=== PATIENT | female | born 1940 | race Two or more races ===

== ENCOUNTER 2018-10-02 10:47 | Outpatient (CLI) | payer OTHER ==
[~2018-10-02 10:47] MED LIST: ALLEGRA ALLERG180 MG PO; BUCALSEP SPRAY30 ML MM; DOLOGESIC CAPLE1 TAB PO; LEVSIN0.125 MG PO; PROVENTIL3 ML/2.5 M IH; TRAMADOL HCL-AP1 TAB PO; ZANTAC300 MG PO; ZESTORETIC 20/11 TAB PO; ZITHROMAX500 MG PO; ZYNCOF 20-400120 ML PO
== END 2018-10-02 10:48 | disposition home or self-care (01) ==
LOC: NUCLEAR 10:47
DX: I87.2 Venous insufficiency (chronic) (peripheral) (principal)

== ENCOUNTER 2018-10-05 08:04 | Outpatient (CLI) | payer OTHER | END 2018-10-05 08:07 | disposition home or self-care (01) | LOC: NUCLEAR 08:04 | DX: I73.9 Peripheral vascular disease, unspecified (principal); I87.2 Venous insufficiency (chronic) (peripheral) ==

== ENCOUNTER 2018-10-07 11:33 | Outpatient (CLI) | payer OTHER | END 2018-10-07 11:54 | disposition home or self-care (01) | LOC: RAD 11:33 | DX: M19.90 Unspecified osteoarthritis, unspecified site (principal) ==

== ENCOUNTER 2020-05-12 00:53 | Emergency (ER) | payer OTHER ==
[~2020-05-12] VITALS: Ht 157.5 cm; Wt 61.2 kg
[2020-05-12] MEDS ORDERED: NORVASC (01:23)
[2020-05-12] MEDS ORDERED: VISTARIL50 MG PO (05:26)
== END 2020-05-12 05:42 | disposition home or self-care (01) ==
LOC: ER 00:53 → CPU-OBS 00:56 → ER 00:56
DX: R07.89 Other chest pain (principal); F41.8 Other specified anxiety disorders

== ENCOUNTER 2020-10-02 15:17 | Outpatient (CLI) | payer OTHER ==
[~2020-10-02 15:17] MED LIST changes: +NORVASC; +VISTARIL50 MG PO
== END 2020-10-06 15:15 | disposition home or self-care (01) ==
LOC: RAD 15:17
PROVIDERS: ATTEND Internal Medicine Cardiovascular Disease
DX: M54.5 Low back pain (principal); M12.851 Other specific arthropathies, not elsewhere classified, right hip; M25.552 Pain in left hip; M25.551 Pain in right hip

== ENCOUNTER 2021-04-03 03:32 | Emergency (ER) | payer OTHER ==
[~2021-04-03] VITALS: Ht 157.5 cm; Wt 59.0 kg
== END 2021-04-03 10:50 | disposition home or self-care (01) ==
LOC: ER 03:32
DX: R42 Dizziness and giddiness (principal); I10 Essential (primary) hypertension

== ENCOUNTER 2021-04-27 21:06 | Emergency (ER) | payer OTHER ==
[~2021-04-27] VITALS: Ht 157.5 cm; Wt 52.2 kg
[2021-04-27] MEDS ORDERED: COZAAR50 MG PO (21:25)
== END 2021-04-27 23:21 | disposition home or self-care (01) ==
LOC: ER 21:06
DX: I10 Essential (primary) hypertension (principal); Z88.8 Allergy status to other drugs, medicaments and biological substances

== ENCOUNTER 2021-04-29 21:00 | Emergency (ER) | payer OTHER ==
[~2021-04-29] VITALS: Ht 157.5 cm; Wt 59.0 kg
[~2021-04-29 21:00] MED LIST changes: +COZAAR50 MG PO
[2021-04-29] MEDS ORDERED: LOSARTAN POTASS50 MG PO (21:16)
[2021-04-29] MEDS ORDERED: HYDROCHLOROTH12.5 MG PO (21:17)
== END 2021-04-29 22:20 | disposition home or self-care (01) ==
LOC: ER 21:00
DX: I10 Essential (primary) hypertension (principal)

== ENCOUNTER 2021-06-15 03:37 | Emergency (ER) | payer OTHER ==
[~2021-06-15] VITALS: Ht 157.5 cm; Wt 57.2 kg
[~2021-06-15 03:37] MED LIST changes: +HYDROCHLOROTH12.5 MG PO; +LOSARTAN POTASS50 MG PO
== END 2021-06-15 10:31 | disposition home or self-care (01) ==
LOC: ER 03:37
DX: I10 Essential (primary) hypertension (principal); Z88.8 Allergy status to other drugs, medicaments and biological substances

== ENCOUNTER 2022-06-19 23:00 | Emergency (ER) | payer OTHER ==
[~2022-06-19] VITALS: Ht 157.5 cm; Wt 54.4 kg
[2022-06-19] MEDS ORDERED: AVAPRO150 MG (23:20)
[2022-06-19] MEDS ORDERED: DILTIAZEM ER180 M3 (23:21)
[2022-06-19] MEDS ORDERED: LEVO-T50 MCG (23:22)
[2022-06-19] MEDS ORDERED: CRESTOR5 MG (23:23)
[2022-06-19] MEDS ORDERED: AMBIEN5 MG (23:24)
== END 2022-06-20 03:39 ==
LOC: ER 23:00
DX: I10 Essential (primary) hypertension (principal); Z88.6 Allergy status to analgesic agent

== ENCOUNTER 2022-07-30 00:05 | Emergency (ER) | payer OTHER ==
[~2022-07-30] VITALS: Ht 157.5 cm; Wt 59.9 kg
[~2022-07-30 00:05] MED LIST changes: +AMBIEN5 MG; +AVAPRO150 MG; +CRESTOR5 MG; +DILTIAZEM ER180 M3; +LEVO-T50 MCG
== END 2022-07-30 01:53 | disposition home or self-care (01) ==
LOC: ER 00:05
DX: R51.9 Headache, unspecified (principal); I10 Essential (primary) hypertension; Z88.8 Allergy status to other drugs, medicaments and biological substances

== ENCOUNTER 2024-01-07 17:08 | Emergency (ER) | payer OTHER ==
[~2024-01-07] VITALS: Ht 152.4 cm; Wt 54.4 kg
[~2024-01-07 17:08] MED LIST changes: +ATENOLOL25 MG PO; +HYDRALAZINE HCL25 MG PO
[2024-01-07] MEDS ORDERED: NEURONTIN300 MG PO (17:33)
[2024-01-07] MEDS ORDERED: HYDROCHLOROTHIA50 MG (17:34)
[2024-01-07] MEDS ORDERED: METRONIDAZOLE500 MG (17:34)
[2024-01-07] MEDS ORDERED: INDAPAMIDE1.25 MG PO (17:35)
[2024-01-07] MEDS ORDERED: SYNTHROID50 MCG PO (17:35)
[2024-01-07] MEDS ORDERED: HYDROXYZIN10 MG/5 ML PO (17:36)
[2024-01-07] MEDS ORDERED: KETOROLAC TROMETHAMINE 60 MG VIAL IM STA (17:55)
== END 2024-01-07 18:17 | disposition home or self-care (01) ==
LOC: ER 17:09
DX: M13.89 Other specified arthritis, multiple sites (principal); I10 Essential (primary) hypertension; Z88.8 Allergy status to other drugs, medicaments and biological substances
CPT/HCPCS: 96372; 99282; J1885

== ENCOUNTER 2024-01-16 16:35 | Inpatient (IN) | payer OTHER ==
[~2024-01-16] VITALS: Ht 152.4 cm; Wt 59.0 kg
[~2024-01-16 16:35] MED LIST changes: +HYDROCHLOROTHIA50 MG; +HYDROXYZIN10 MG/5 ML PO; +INDAPAMIDE1.25 MG PO; +METRONIDAZOLE500 MG; +NEURONTIN300 MG PO; +SYNTHROID50 MCG PO
[2024-01-16] MEDS ORDERED: FAMOTIDINE/PF 20 MG in 0.9 % SODIUM CHLORIDE 8 ML IV PUSH STA (17:08)
[2024-01-16] MEDS ORDERED: ONDANSETRON HCL 2 MG/ML VIAL IV ONE (17:15)
[2024-01-16] MEDS ORDERED: hydrOXYzine PAMOATE 25 MG CAPSULE PO ONE (17:15)
[2024-01-16] MEDS ORDERED: SODIUM CHLORIDE 0.45 % 1,000 ML IV SCH (17:15)
[2024-01-16 17:32] LABS: HEMATOCRIT 35.2 % (36.0-45.00); HEMOGLOBIN 12.2 g/dL (12.0-15.00); MEAN CELL VOLUME 84.5 fL (80.00-100.00); MEAN CORPUSCULAR HEMOGLOBIN 29.4 pg (27.00-32.0); MEAN CORPUSCULAR HGB CONC 34.8 g/dl (32.0-36.0); PLATELET COUNT 312 K/uL (150-450); RED BLOOD COUNT 4.16 M/uL (4.00-6.00); RED CELL DISTRIBUTION WIDTH 13.8 % (11.5-14.5)
[2024-01-16 18:22] LABS: URINE APPEARANCE Clear; URINE BILIRRUBIN Negative (NEGATIVE); URINE BLOOD Small; URINE COLOR Yellow; URINE GLUCOSE Negative (NEGATIVE); URINE KETONE Trace (NEGATIVE); URINE LEUKOCYTE Negative; URINE NITRATE Negative; URINE PROTEIN Trace (NEGATIVE); URINE UROBILINOGEN 0.2 E.U./dl
[2024-01-16 18:26] LABS: URINE BACTERIA 93.1 uL (0.0-1933); URINE EPITHELIAL CELLS 14.9 uL (0.0-38.8); URINE WBC 5.8 uL (0.0-23.2)
[2024-01-16] MEDS ORDERED: BUTALB/ACETAMINOPHEN/CAFFEINE 1 TAB TABLET PO ONE (18:45)
[2024-01-16] MEDS ORDERED: ENALAPRILAT DIHYDRATE 2.5 MG/2 ML VIAL IV ONE (18:45)
[2024-01-16 19:11] LABS: ALBUMIN 3.7 gm/dL (3.4-5.0); BILIRUBIN TOTAL 0.28 mg/dL (0.3-1.2); CALCIUM 9.2 mg/dL (8.5-10.1); CREATININE SERUM 0.82 mg/dL (0.55-1.02); GFR 66.74; GLOBULINA 4.1 G/DL (2.4-3.5); TOTAL PROTEIN 7.8 gm/dL (6.4-8.2)
[2024-01-16 19:16] LABS: POTASSIUM 2.76 mEq/L (3.5-5.1)
[2024-01-16] MEDS ORDERED: POTASSIUM CHLORIDE/D5-0.9%NACL 1,000 ML IV ONE (20:15)
[2024-01-16] MEDS ORDERED: 0.9 % SODIUM CHLORIDE 1,000 ML IV SCH ×2 (21:45→22:15)
[2024-01-16] MEDS ORDERED: ACETAMINOPHEN 325 MG TABLET PO PRN (22:15)
[2024-01-16] MEDS ORDERED: VITAMIN B COMPLEX/LYSINE 1 ML ML PO SCH (22:18)
[2024-01-16] MEDS ORDERED: ENALAPRILAT DIHYDRATE 2.5 MG/2 ML VIAL IV PRN (22:30)
[2024-01-16] MEDS ORDERED: POTASSIUM CHLORIDE IN WATER 100 ML IV ONE (22:30)
[2024-01-17 05:15] VITALS: BP 170/84; O2SAT 97
[2024-01-17] MEDS ORDERED: LEVOTHYROXINE SODIUM 50 MCG TABLET PO SCH (06:00)
[2024-01-17 07:55] LABS: HEMATOCRIT 33.4 % (36.0-45.00); HEMOGLOBIN 11.8 g/dL (12.0-15.00); MEAN CELL VOLUME 84.8 fL (80.00-100.00); MEAN CORPUSCULAR HEMOGLOBIN 29.9 pg (27.00-32.0); MEAN CORPUSCULAR HGB CONC 35.3 g/dl (32.0-36.0); PLATELET COUNT 321 K/uL (150-450); RED BLOOD COUNT 3.93 M/uL (4.00-6.00); RED CELL DISTRIBUTION WIDTH 13.8 % (11.5-14.5)
[2024-01-17 08:20] LABS: ALBUMIN 3.3 gm/dL (3.4-5.0); BILIRUBIN TOTAL 0.26 mg/dL (0.3-1.2); CALCIUM 8.7 mg/dL (8.5-10.1); CREATININE SERUM 0.82 mg/dL (0.55-1.02); GFR 66.74; GLOBULINA 3.3 G/DL (2.4-3.5); POTASSIUM 3.66 mEq/L (3.5-5.1); TOTAL PROTEIN 6.6 gm/dL (6.4-8.2)
[2024-01-17 08:25] VITALS: BP 155/81; O2SAT 95
[2024-01-17] MEDS ORDERED: ACETAMINOPHEN 500 MG GEL..CAP PO PRN (10:00)
[2024-01-17] MEDS ORDERED: ENOXAPARIN SODIUM 40 MG/0.4 ML SYRINGE SUBCUTANEO SCH (10:38)
[2024-01-17] MEDS ORDERED: FAMOTIDINE/PF 20 MG/2 ML VIAL IV SCH (10:38)
[2024-01-17 14:27] LABS: ALBUMIN 3.5 gm/dL (3.4-5.0); BILIRUBIN TOTAL 0.31 mg/dL (0.3-1.2); CALCIUM 9.2 mg/dL (8.5-10.1); CREATININE SERUM 0.82 mg/dL (0.55-1.02); GFR 66.74; GLOBULINA 3.6 G/DL (2.4-3.5); POTASSIUM 3.82 mEq/L (3.5-5.1); TOTAL PROTEIN 7.1 gm/dL (6.4-8.2); URIC ACID 4.2 mg/dL (2.5-7.5)
[2024-01-17] MEDS ORDERED: ZOLPIDEM TARTRATE 10 MG TABLET PO SCH (21:00)
[2024-01-18 02:30] VITALS: BP 168/80
[2024-01-18] MEDS ORDERED: POTASSIUM BICARBONATE/CIT AC 25 MEQ TABLET.EFF PO SCH (09:00)
[2024-01-18] MEDS ORDERED: IRBESARTAN 150 MG TABLET PO SCH (09:00)
[2024-01-18 09:52] LABS: HEMATOCRIT 38.5 % (36.0-45.00); HEMOGLOBIN 13.1 g/dL (12.0-15.00); MEAN CELL VOLUME 86.6 fL (80.00-100.00); MEAN CORPUSCULAR HEMOGLOBIN 29.4 pg (27.00-32.0); PLATELET COUNT 368 K/uL (150-450); RED BLOOD COUNT 4.45 M/uL (4.00-6.00); RED CELL DISTRIBUTION WIDTH 13.9 % (11.5-14.5)
[2024-01-18 10:01] VITALS: BP 150/87; O2SAT 99
[2024-01-18 10:10] LABS: ERYTHROCYTE SEDIMENTATION RATE 51 mm/hr
[2024-01-18 10:17] LABS: ALBUMIN 3.7 gm/dL (3.4-5.0); BILIRUBIN TOTAL 0.29 mg/dL (0.3-1.2); CALCIUM 9.2 mg/dL (8.5-10.1); GFR 53.08; GLOBULINA 3.5 G/DL (2.4-3.5); MAGNESIUM 1.7 mg/dL (1.8-2.4); PHOSPHOROUS 2.7 mg/dL (2.5-4.9); POTASSIUM 3.62 mEq/L (3.5-5.1); TOTAL PROTEIN 7.2 gm/dL (6.4-8.2)
[2024-01-18 10:21] LABS: C-REACTIVE PROTEIN 0.62 MG/DL (0.00-0.29)
[2024-01-18] MEDS ORDERED: MAGNESIUM SULFATE IN WATER 50 ML IV NR (13:00)
[2024-01-18] MEDS ORDERED: BENZONATATE 100 MG CAPSULE PO PRN (15:15)
[2024-01-18] MEDS ORDERED: CLONAZEPAM 0.5 MG TABLET PO ONE (15:15)
[2024-01-18 20:29] VITALS: BP 186/80
[2024-01-18] MEDS ORDERED: MAGNESIUM SULFATE 50% 1,000 MG/2 ML VIAL IV ONE (23:00)
[2024-01-18] MEDS ORDERED: AMLODIPINE BESYLATE 5 MG TABLET PO SCH (23:09)
[2024-01-18] MEDS ORDERED: hydrALAZINE HCL 20 MG VIAL IV PRN (23:15)
[2024-01-19 01:53] VITALS: BP 118/71
[2024-01-19 08:45] VITALS: BP 106/64; O2SAT 96
[2024-01-19 15:49] LABS: ALBUMIN 3.7 gm/dL (3.4-5.0); BILIRUBIN TOTAL 0.34 mg/dL (0.3-1.2); CALCIUM 8.9 mg/dL (8.5-10.1); CREATININE SERUM 0.85 mg/dL (0.55-1.02); GFR 64.03; GLOBULINA 3.7 G/DL (2.4-3.5); POTASSIUM 3.39 mEq/L (3.5-5.1); TOTAL PROTEIN 7.4 gm/dL (6.4-8.2); TSH 0.57 uIU/mL (0.358-3.74)
[2024-01-19 19:43] VITALS: BP 161/85; O2SAT 98
[2024-01-19] MEDS ORDERED: POTASSIUM CHLORIDE 20MEQ/100ML H2O PB IV ONE (20:00)
[2024-01-20 01:09] VITALS: BP 102/64
[2024-01-20] MEDS ORDERED: ENALAPRILAT DIHYDRATE 1.25 MG/ML VIAL IV PRN (08:15)
[2024-01-20] MEDS ORDERED: ALPRAzolam 0.5 MG TABLET PO ONE (09:45)
[2024-01-20 10:09] VITALS: BP 147/78; O2SAT 95
[2024-01-20] MEDS ORDERED: 0.9 % SODIUM CHLORIDE 500 ML IV STA (11:15)
[2024-01-20] MEDS ORDERED: AMLODIPINE BESYL5 MG PO (11:54)
[2024-01-20] MEDS ORDERED: LEVOTHYROXINE50 MCG PO (11:55)
[2024-01-20] MEDS ORDERED: AVAPRO150 MG PO (11:55)
[2024-01-20] MEDS ORDERED: BENZONATATE100 MG PO (11:55)
[2024-01-20] MEDS ORDERED: TUSNEL LIQUID178 ML PO (11:56)
== END 2024-01-20 13:26 | disposition home or self-care (01) | DRG 640 ==
LOC: ER 16:35 → MEDI 22:46 → MEDJ 01-17 16:16
PROVIDERS: General Practice; Internal Medicine; ADMIT Internal Medicine; ATTEND Internal Medicine
PROC: BW28ZZZ Computerized Tomography (CT Scan) of Head (ICD-10-PCS; principal; 2024-01-16)
DX: E87.1 Hypo-osmolality and hyponatremia (principal); U07.1 COVID-19; E86.0 Dehydration; E87.6 Hypokalemia; I10 Essential (primary) hypertension; R55 Syncope and collapse

== ENCOUNTER 2024-10-10 14:30 | Emergency (ER) | payer OTHER ==
[~2024-10-10] VITALS: Ht 165.1 cm; Wt 52.2 kg
[~2024-10-10 14:30] MED LIST changes: +AMLODIPINE BESYL5 MG PO; +AVAPRO150 MG PO; +BENZONATATE100 MG PO; +LEVOTHYROXINE50 MCG PO; +TUSNEL LIQUID178 ML PO
[2024-10-10] MEDS ORDERED: MECLIZINE HCL 25 MG TABLET PO ONE ×2 (17:00→17:55)
[2024-10-10 18:14] LABS: BASO % 1.0 % (0.1-1.2); EOS # 0.15 (0.04-0.54); EOS % 2.0 % (0.7-7.0); LYMPH # 2.36 (1.18-3.74); LYMPH % 30.9 % (19.3-53.1); MEAN PLATELET VOLUME 10.60 fl (9.4-12.4); MONO # 0.46 (0.24-0.82); MONO % 6.0 % (4.7-12.5); NEUT # 4.56 (1.56-6.13); NEUT % 59.8 % (34.0-71.1); RED CELL DISTRIBUTION WIDTH 13.7 % (11.6-14.4)
[2024-10-10 18:42] LABS: URINE APPEARANCE Clear; URINE BILIRRUBIN Negative (NEGATIVE); URINE BLOOD Small; URINE COLOR Yellow; URINE GLUCOSE Negative (NEGATIVE); URINE KETONE Negative (NEGATIVE); URINE LEUKOCYTE Negative; URINE NITRATE Negative; URINE PROTEIN Negative (NEGATIVE); URINE UROBILINOGEN 0.2 E.U./dl
[2024-10-10 18:42] LABS: ALT/SGPT 22.0 U/L (12-78); AST/SGOT 22.0 U/L (15-37); BILIRUBIN TOTAL 0.35 mg/dL (0.3-1.2); BUN CREA RATIO 16.0 (7.0-25.0); CREATININE SERUM 0.8 mg/dL (0.55-1.02); GFR 68.5; GLOBULINA 4.1 G/DL (2.4-3.5); GLUCOSE FASTING 120.0 mg/dL (65-100); OSMOLALITY SERUM 288.0 MOSM/KG (275-295)
[2024-10-10 18:46] LABS: URINE BACTERIA 9.5 uL (0.0-1933); URINE RBC 30.7 uL (0.0-20.8); URINE WBC 4.3 uL (0.0-23.2)
[2024-10-10 18:59] LABS: COVID-19 AG NEGATIVE (NEGATIVE)
[2024-10-10] MEDS ORDERED: OSEL75CA PO (19:13)
[2024-10-10] MEDS ORDERED: PEPCID AC20 MG PO (19:13)
[2024-10-10 19:59] LABS: URINE CAST 0.00 uL (0.0-1.40); URINE EPITHELIAL CELLS 0.6 uL (0.0-38.8)
== END 2024-10-10 20:24 | disposition home or self-care (01) ==
LOC: ER 14:30
PROVIDERS: General Practice
DX: J11.1 Influenza due to unidentified influenza virus with other respiratory manifestations (principal); R42 Dizziness and giddiness; I10 Essential (primary) hypertension; Z20.822 Contact with and (suspected) exposure to COVID-19; Z88.8 Allergy status to other drugs, medicaments and biological substances

== ENCOUNTER 2024-11-28 11:09 | Emergency (ER) | payer OTHER ==
[~2024-11-28] VITALS: Ht 154.9 cm; Wt 54.4 kg
[~2024-11-28 11:09] MED LIST changes: +OSEL75CA PO; +PEPCID AC20 MG PO
[2024-11-28] MEDS ORDERED: KETOROLAC TROMETHAMINE 30 MG VIAL IV STA (13:42)
[2024-11-28] MEDS ORDERED: FAMOTIDINE/PF 20 MG/2 ML VIAL IV STA (13:42)
[2024-11-28 14:36] LABS: BASO % 0.7 % (0.1-1.2); EOS # 0.03 (0.04-0.54); EOS % 0.3 % (0.7-7.0); LYMPH # 2.67 (1.18-3.74); LYMPH % 22.3 % (19.3-53.1); MEAN PLATELET VOLUME 10.40 fl (9.4-12.4); MONO # 0.73 (0.24-0.82); MONO % 6.1 % (4.7-12.5); NEUT # 8.42 (1.56-6.13); NEUT % 70.3 % (34.0-71.1); RED CELL DISTRIBUTION WIDTH 13.8 % (11.6-14.4)
[2024-11-28 14:55] LABS: ALT/SGPT 21.0 U/L (12-78); AST/SGOT 18.0 U/L (15-37); BILIRUBIN TOTAL 0.87 mg/dL (0.3-1.2); BUN CREA RATIO 13.0 (7.0-25.0); CREATININE SERUM 0.87 mg/dL (0.55-1.02); GFR 62.18; GLOBULINA 4.3 G/DL (2.4-3.5); GLUCOSE FASTING 95.0 mg/dL (65-100); OSMOLALITY SERUM 280.0 MOSM/KG (275-295)
[2024-11-28 15:28] LABS: URINE APPEARANCE Clear; URINE BILIRRUBIN Negative (NEGATIVE); URINE BLOOD Small; URINE COLOR Yellow; URINE GLUCOSE Negative (NEGATIVE); URINE KETONE Negative (NEGATIVE); URINE LEUKOCYTE Moderate; URINE NITRATE Negative; URINE PROTEIN Negative (NEGATIVE); URINE UROBILINOGEN 0.2 E.U./dl
[2024-11-28 16:05] LABS: URINE RBC 0-3 /HPF
[2024-11-28 16:06] LABS: URINE BACTERIA FEW; URINE WBC 41-50 /hpf
== END 2024-11-28 20:44 | disposition home or self-care (01) ==
LOC: ER 11:09
PROVIDERS: General Practice
DX: R10.84 Generalized abdominal pain (principal); K57.30 Diverticulosis of large intestine without perforation or abscess without bleeding; K57.32 Diverticulitis of large intestine without perforation or abscess without bleeding; I10 Essential (primary) hypertension; Z88.8 Allergy status to other drugs, medicaments and biological substances
CPT/HCPCS: 36415; 74176; 96365; 99283; J1885; J3490